=== PATIENT | male | born 1950 | race Caucasian/White ===

== ENCOUNTER 2017-03-10 10:34 | Emergency (ER) | payer OTHER ==
[~2017-03-10 10:34] MED LIST: ADVIL,NUPRIN,M200 MG PO; ADVIL200 MG PO; ALBUTEROL SULF8.5 GM IH; ALBUTEROL2.5 MG/3 M IH; AZITHROMYCIN500 M1 PO; CARDIZEM CD,CA240 MG PO; COUMADIN2 MG PO; COUMADIN5 MG PO; COUMADIN6 MG PO; DAILY VITAMIN1 EAC8 PO; ENDOCET 5-3251 EACH PO; FLOVENT 11120 INHALA IH; FLUOXETINE HCL20 MG PO; FUROSEMIDE40 MG PO; FUROSEMIDE80 MG PO; GUAIFENESI100 MG/5 M PO; IBUPROFEN200 M1 PO; LASIX40 MG PO; LEVOFLOXACIN500 MG PO; LISINOPRIL20 MG PO; LO-DOSE ASPIRIN81 M1 PO; METOPROLOL TART50 MG PO; NORCO 5/3251 TABLET PO; OMEGA-31000 M1 PO; PREDNISONE10 MG PO; SIMVASTATIN40 MG PO; SPIRIVA RESPIMAT4 GM IH; SPIRONOLACTONE50 MG PO; VALIUM5 MG PO; ZOCOR40 MG PO
== END 2017-03-10 14:10 ==
LOC: EME 10:34
PROC: 5A12012 Performance of Cardiac Output, Single, Manual (ICD-10-PCS; principal; 2017-03-10)
DX: I46.9 Cardiac arrest, cause unspecified (principal); I10 Essential (primary) hypertension; J44.9 Chronic obstructive pulmonary disease, unspecified
CPT/HCPCS: 80048; 81003; 82150; 83605; 83690; 84484; 85025; 85610; 85730; 86900; 86901; 87040; 92950; 99281; 99284; G0480